=== PATIENT | female | born 2000 | race Caucasian/White ===

== ENCOUNTER 2023-07-07 06:47 | Emergency (ER) | payer OTHER ==
[~2023-07-07] VITALS: Ht 152.4 cm; Wt 71.4 kg
[2023-07-07 06:48] VITALS: BP 129/77; TEMP 99.9; O2SAT 99
[2023-07-07] MEDS ORDERED: ACETAMINOPHEN TAB 650MG DOSE (2X325MG) PO ONE (09:25)
[2023-07-07] MEDS ORDERED: IBUPROFEN 400MG TAB PO ONE (09:25)
== END 2023-07-07 10:07 | disposition home or self-care (01) ==
LOC: M ED 06:47
DX: B34.9 Viral infection, unspecified (principal); I45.10 Unspecified right bundle-branch block

== ENCOUNTER 2023-10-10 12:39 | Emergency (ER) | payer OTHER ==
[~2023-10-10] VITALS: Ht 152.4 cm; Wt 68.3 kg
[2023-10-10 13:22] LABS: BASO % 0.3 % (0.0-1.0); EOS % 0.4 % (0.0-3.0); HEMATOCRIT 39.8 % (36.0-47.0); HEMOGLOBIN 13.3 g/dl (12.0-15.5); LYMPH % 25.7 % (24.0-44.0); MEAN CORPUSCULAR HEMOGLOBIN 30.5 pg (27.0-33.0); MEAN CORPUSCULAR HGB CONC 33.4 g/dl (32.0-36.5); MEAN CORPUSCULAR VOLUME 91.3 fl (80.0-96.0); MONO # 0.6 10^3/uL (0.0-0.8); MONO % 7.3 % (2.0-8.0); NEUTROPHILS # 5.2 10^3/uL (1.5-8.5); NEUTROPHILS % 65.9 % (36.0-66.0); PLATELET COUNT, AUTOMATED 323 10^3/uL (150-450); RED BLOOD COUNT 4.36 10^6/uL (4.00-5.40); WHITE BLOOD COUNT 7.8 10^3/uL (4.0-10.0)
[2023-10-10 13:49] LABS: ALBUMIN 3.8 G/DL (3.2-5.2); ALKALINE PHOSPHATASE 72 U/L (46-116); ALT/SGPT 15 U/L (7.0-40); AST/SGOT 15 U/L (<34); BILIRUBIN,DIRECT 0.1 MG/DL (<0.4); BILIRUBIN,TOTAL 0.3 MG/DL (0.3-1.2); BLOOD UREA NITROGEN 14 MG/DL (9-23); CALCIUM LEVEL 8.7 MG/DL (8.5-10.1); CARBON DIOXIDE LEVEL 26 MMOL/L (20-31); CHLORIDE LEVEL 105 MMOL/L (98-107); CREATININE FOR GFR 0.69 MG/DL (0.55-1.30); GLOMERULAR FILTRATION RATE > 60.0 (>60); GLUCOSE, FASTING 117 MG/DL (60-100); HCG, SERUM QUANTITATIVE 6.4 MIU/ML (<4.2); POTASSIUM SERUM 4.4 MMOL/L (3.5-5.1); SODIUM LEVEL 138 MMOL/L (136-145); TOTAL PROTEIN 7.4 G/DL (5.7-8.2)
[2023-10-10] MEDS: metroNIDAZOLE (FLAGYL) 500MG TABLET PO ONE (14:22)
[2023-10-10 15:45] LABS: GC DNA AMPLIFICATION NEGATIVE (NEGATIVE)
[2023-10-10] MEDS: AZITHROMYCIN 250MG TABLET PO ONE (16:08)
[2023-10-10] MEDS ORDERED: METR-265 PO (16:09)
[2023-10-10 16:32] VITALS: BP 114/57; TEMP 98.7; O2SAT 98
== END 2023-10-10 16:34 | disposition home or self-care (01) ==
LOC: M ED 12:39
DX: A74.9 Chlamydial infection, unspecified (principal); O23.599 Infection of other part of genital tract in pregnancy, unspecified trimester; O20.0 Threatened abortion

== ENCOUNTER → 2023-10-12 | Outpatient (CLI) | payer OTHER ==
[~2023-10-12] MED LIST: METR-265 PO
== END ==
LOC: M LAB 07:05
PROVIDERS: ATTEND Emergency Medicine
DX: O20.0 Threatened abortion (principal); Z3A.00 Weeks of gestation of pregnancy not specified

== ENCOUNTER → 2023-11-26 | Outpatient (CLI) | payer OTHER ==
[~2023-11-26] MED LIST changes: +PROHANCE 279.3MG/ML 15ML VIAL As Ordered ONE
== END ==
LOC: M RAD 12:37
PROVIDERS: ATTEND Obstetrics & Gynecology
DX: E22.1 Hyperprolactinemia (principal); E23.7 Disorder of pituitary gland, unspecified
CPT/HCPCS: 70553; A9576

== ENCOUNTER 2024-07-18 16:28 | Outpatient (CLI) | payer OTHER ==
[~2024-07-18] VITALS: Ht 152.4 cm; Wt 74.2 kg
[~2024-07-18 16:28] MED LIST changes: -PROHANCE 279.3MG/ML 15ML VIAL As Ordered ONE
[2024-07-18] MEDS ORDERED: HOME MED LIST COMPLETE! XX SCH (16:45)
[2024-07-18] MEDS ORDERED: PRENTAB9 PO (16:45)
[2024-07-18 16:47] VITALS: BP 111/63
[2024-07-18 17:25] VITALS: BP 116/62
[2024-07-18] MEDS: ACETAMINOPHEN 500 MG TAB PO ONE (18:50)
[2024-07-18 19:35] VITALS: BP 102/56
== END 2024-07-18 20:00 | disposition home or self-care (01) ==
LOC: M LDO 16:28
PROVIDERS: ATTEND Obstetrics & Gynecology
DX: O26.893 Other specified pregnancy related conditions, third trimester (principal); R10.11 Right upper quadrant pain; Z3A.23 23 weeks gestation of pregnancy
CPT/HCPCS: 76705; 76857; G0463

== ENCOUNTER → 2024-09-19 | Outpatient (CLI) | payer OTHER ==
[~2024-09-19] MED LIST changes: +PRENTAB9 PO
[2024-09-19 14:22] LABS: HEMATOCRIT 35.1 % (36.0-47.0); HEMOGLOBIN 11.4 g/dl (12.0-15.5); MEAN CORPUSCULAR HEMOGLOBIN 30.6 pg (27.0-33.0); MEAN CORPUSCULAR HGB CONC 32.5 g/dl (32.0-36.5); MEAN CORPUSCULAR VOLUME 94.1 fl (80.0-96.0); PLATELET COUNT, AUTOMATED 245 10^3/uL (150-450); RED BLOOD COUNT 3.73 10^6/uL (4.00-5.40); WHITE BLOOD COUNT 8.3 10^3/uL (4.0-10.0)
== END ==
LOC: M PLALAB 10:53
PROVIDERS: ATTEND Nurse Practitioner Family
DX: D50.9 Iron deficiency anemia, unspecified (principal)

== ENCOUNTER → 2024-10-17 | Outpatient (REF) | payer OTHER ==
[~2024-10-17] MED LIST changes: +ACET-907 PO
== END ==
LOC: M SFHCWAGY 13:14
PROVIDERS: ATTEND Specialist
DX: Z34.83 Encounter for supervision of other normal pregnancy, third trimester (principal)

== ENCOUNTER 2024-10-30 22:56 | Inpatient (IN) | payer OTHER ==
[~2024-10-30] VITALS: Ht 152.4 cm; Wt 82.1 kg
[~2024-10-30 22:56] MED LIST changes: -ACET-907 PO
[2024-10-30] MEDS ORDERED: HOME MED LIST COMPLETE! XX SCH (23:05)
[2024-10-30] MEDS ORDERED: ACET-907 PO (23:05)
[2024-10-30 23:13] VITALS: BP 132/67
[2024-10-31] VITALS (33 sets, daily range): BP systolic 97–147; BP diastolic 53–82
[2024-10-31] MEDS: BUTORPHANOL 2 MG/ML 1ML VIAL IV ONE (00:57)
[2024-10-31] MEDS: PROMETHAZINE 25MG/ML 1ML VIAL IV ONE (00:58)
[2024-10-31] MEDS: LACTATED RINGER'S 1000 ML IV STA (08:23)
[2024-10-31] MEDS ORDERED: METHYLERGONOVINE MALEATE 0.2MG/ML 1ML VIAL IM PRN (08:25)
[2024-10-31] MEDS ORDERED: TRANEXAMIC ACID INJection 1,000 MG in NS 100 ML IV PRN (08:25)
[2024-10-31] MEDS ORDERED: LIDOCAINE 1% MDV 20ML VIAL INFIL PRN (08:25)
[2024-10-31] MEDS ORDERED: OXYTOCIN INJ 10UNITS/ML 1ML VIAL IM PRN (08:25)
[2024-10-31] MEDS ORDERED: CARBOPROST TROMETHAMINE 250 MCG/ML AMP IM PRN (08:25)
[2024-10-31 08:53] LABS: HEMATOCRIT 37.5 % (36.0-47.0); HEMOGLOBIN 12.3 g/dl (12.0-15.5); MEAN CORPUSCULAR HEMOGLOBIN 30.7 pg (27.0-33.0); MEAN CORPUSCULAR HGB CONC 32.8 g/dl (32.0-36.5); MEAN CORPUSCULAR VOLUME 93.5 fl (80.0-96.0); PLATELET COUNT, AUTOMATED 257 10^3/uL (150-450); RED BLOOD COUNT 4.01 10^6/uL (4.00-5.40)
[2024-10-31 09:18] LABS: HIV 1&2 SCREEN NEGATIVE (NEGATIVE)
[2024-10-31 09:26] LABS: HEPATITIS C VIRUS ABY INDEX 0.03 INDEX (<0.8)
[2024-10-31] MEDS: OXYTOCIN DRIP 30 UNITS in IV 1 EA IV SCH (14:10)
[2024-10-31] MEDS: LR 1,000 ML IV SCH (14:11)
[2024-10-31] MEDS ORDERED: ePHEDrine SULFATE 25 MG/5 ML(5MG/ML) SYRINGE IVP PRN (16:35)
[2024-10-31] MEDS ORDERED: diphenhydrAMINE 50MG/ML VIAL IV PRN ×2 (16:35)
[2024-10-31] MEDS ORDERED: LR 500 ML IV PRN (16:35)
[2024-10-31] MEDS ORDERED: EPIDURAL/PCA KEYS XX PRN ×2 (16:35)
[2024-10-31] MEDS ORDERED: METOCLOPRAMIDE INJ 10MG/2ML VIAL IV PRN (16:35)
[2024-10-31] MEDS ORDERED: ONDANSETRON 4MG 2ML VIAL IV PRN (16:35)
[2024-10-31] MEDS ORDERED: NALBUPHINE HCL 10 MG/ML 1ML AMP IV PRN (16:35)
[2024-10-31] MEDS ORDERED: NALOXONE INJ 0.4MG/1ML VIAL IV PRN ×2 (16:35)
[2024-10-31] MEDS ORDERED: fentaNYL CITRATE 500 MCG, BUPIVACAINE HCL 0.5% 31.25 ML in NS 208.75 ML EPIDURAL SCH (16:35)
[2024-10-31] MEDS: FENTANYL/ROPIVACAINE/NACL BAG 100 ML EPIDURAL SCH (16:35)
[2024-10-31] MEDS: ONDANSETRON 4MG 2ML VIAL IV PRN (22:48)
[2024-11-01] VITALS (13 sets, daily range): BP systolic 103–133; BP diastolic 56–73
[2024-11-01] MEDS: OXYTOCIN DRIP 30 UNITS in IV 1 EA IV PRN (04:38)
[2024-11-01] MEDS ORDERED: DIBUCAINE 1% OINTMENT 30GM TOP PRN (05:10)
[2024-11-01] MEDS ORDERED: METHYLERGONOVINE MALEATE 0.2 MG TAB PO PRN (05:10)
[2024-11-01] MEDS ORDERED: IBUPROFEN 600MG TAB PO PRN (05:10)
[2024-11-01] MEDS ORDERED: ACETAMINOPHEN 325 MG TAB PO PRN (05:10)
[2024-11-01] MEDS ORDERED: DOCUSATE SODIUM 100MG CAPSULE PO PRN (05:10)
[2024-11-01] MEDS: IBUPROFEN 800 MG TAB PO PRN (05:50)
[2024-11-01] MEDS: ACETAMINOPHEN 500 MG TAB PO PRN (05:50)
[2024-11-01] MEDS: PRENATAL VITAMINS CHEWABLE TABLET PO SCH (09:42)
[2024-11-02 06:00] VITALS: BP 103/59; O2SAT 96
[2024-11-02 17:49] VITALS: BP 121/69; O2SAT 97
[2024-11-03 06:02] VITALS: BP 129/71; O2SAT 98
[2024-11-03] MEDS: RHOGAM 300MCG (1500IU) INJ IM SCH (07:26)
[2024-11-03] MEDS: MEASLES,MUMPS,RUBELLA VACCINE INJ (MMR-II) SC.IMMUN ONE (09:00)
== END 2024-11-03 12:37 | disposition home or self-care (01) | DRG 807 ==
LOC: M LDO 22:56 → M LDI 10-31 08:30 → M OBS 11-01 08:52
PROVIDERS: ADMIT Specialist; ATTEND Specialist
PROC: 10E0XZZ Delivery of Products of Conception, External Approach (ICD-10-PCS; principal; 2024-10-31)
PROC: 10907ZC Drainage of Amniotic Fluid, Therapeutic from Products of Conception, Via Natural or Artificial Opening (ICD-10-PCS; 2024-10-31)
PROC: 0HQ9XZZ Repair Perineum Skin, External Approach (ICD-10-PCS; 2024-10-31)
DX: O70.0 First degree perineal laceration during delivery (principal); Z37.0 Single live birth; Z3A.38 38 weeks gestation of pregnancy